=== PATIENT | male | born 1960 | race Caucasian/White ===

== ENCOUNTER → 2018-05-14 | Outpatient (CLI) | payer BC, OTHER ==
[~2018-05-14] VITALS: Ht 182.9 cm; Wt 73.5 kg
[~2018-05-14] MED LIST: ADVIL100 M2 PO; CREON DR 3,0001 EACH PO; KEFLEX500 MG PO; NEURONTIN 300300 M1 PO; NORCO 5-325 TA1 EACH PO; PROTONIX40 M1 PO; THERA-M1 EAC1 PO; TYLENOL EXTRA500 MG PO
[2018-05-14 07:01] VITALS: BP 126/81
[2018-05-14 07:11] LABS: HEMATOCRIT 37.8 % (42.0-52.0); HEMOGLOBIN 12.8 gm/dL (14.0-18.0); MCH 30.5 pg (26.0-34.0); MCHC 33.8 g/dL (28.0-37.0); MCV 90.2 fL (80.0-100.0); PLATELET COUNT 357 thou/uL (150-400); RBC 4.19 mil/uL (4.50-6.00); RDW 13.6 % (10.5-14.5); WBC 5.2 thou/uL (4.0-11.0)
[2018-05-14 07:19] LABS: CREATININE 0.6 mg/dL (0.7-1.3); POTASSIUM 3.8 mmol/L (3.5-5.1)
[2018-05-14 07:23] LABS: APTT 27.4 Seconds (24.5-32.8)
[2018-05-14 07:25] LABS: ALBUMIN 3.5 g/dL (3.4-5.0); TOTAL BILIRUBIN 0.7 mg/dL (<0.1-1.0); TOTAL PROTEIN 7.3 g/dL (6.4-8.2)
[2018-05-14 08:48] LABS: ABSOLUTE NEUTROPHILS 3.1 thou/uL (1.4-8.2); PLATELET ESTIMATE NORMAL
--- NOTE | 2018-05-17 08:52 | P ---
Formerly [facility] [place] [address] PROCEDURE REPORT Name: MALKA BAIRD [id number] Admission: 05/14/18 Attend Phys: Kamlesh Gutierres MD Discharge: Date of : 60 Report #: [id number] THIS REPORT FOR: //name// CC: Kamlesh Palencia DATE OF SERVICE: 05/14/2018 PREOPERATIVE DIAGNOSIS: Adenosine sensitive supraventricular tachycardia. POSTOPERATIVE DIAGNOSIS: Typical atrioventricular magi reentrant tachycardia. ANESTHESIA: The patient underwent MAC anesthesia with no anesthesia related complications. DESCRIPTION OF PROCEDURE: The patient underwent informed consent. We discussed the details of the procedure including the risks, which include but not limited to bleeding, vascular damage, cardiac perforation as well as stroke or [place]. Risks also include damage to the [place]on conduction system requiring permanent pacemaker. He understood these risks and is willing to proceed. The patient was brought to the EP laboratory in a fasting and sedated state, prepped and draped in a sterile fashion. I obtained access to the bilateral femoral veins and placing a short sheath using the modified Seldinger technique. In the right femoral vein, I placed an 8 and 6-Estonian short sheath. In the left femoral vein, I placed a 6 and 7-Estonian short sheath. Next, under fluoroscopy, I placed a decapolar catheter easily in the coronary sinus. Of note, his coronary sinus had a very vertical takeoff. I then placed 3 quadripolar catheters at the HRA, His, and RV positions. Next, a basic EP study was performed. At baseline, the patient was in sinus rhythm with a sinus cycle length of 630 milliseconds, WA interval 155 milliseconds, QRS duration of 140 milliseconds with a right bundle branch block, which is old, QT interval 380 milliseconds, AH interval 90 and HV interval 48 milliseconds. Next, atrial burst pacing was performed and the patient would go into a short run of what appeared to be an SVT with a high to low atrial activation. This would last for about 5-10 beats and was easily reproducible. AV block was noted at 330 milliseconds. A single atrial extrastimuli would also induce the short runs of his atrial tachycardia. Next, ventricular pacing was performed and VA block was noted at 300 milliseconds. Ventricular ERP was noted at 240 milliseconds at a [address] cycle length with conduction that was both midline and decremental. Next, I decided to initiate isoproterenol at 2 mcg per minute and AV block was noted at 280 milliseconds. Again, he would have the short runs of what appeared to be an atrial tachycardia that had a high to low atrial activation and therefore, I thought that perhaps we had a kimberly terminalis focus for an atrial tachycardia. As the patient was on isoproterenol, I decided to place a PentaRay into the right atrium and I created a detailed 3D geometry [facility] [address] [place] [address] PROCEDURE REPORT Name: MALKA BAIRD Room #: REG CL Kamaljit#: [id number] Admission: 05/14/18 Attend Phys: Kamlesh Gutierres MD Discharge: Date of : 60 Report #: [id number] of the right atrium. The patient then went into a rapid SVT that was 280 milliseconds and I started mapping this tachycardia and this showed that the tachycardia was arising close to the AV node. 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 This tachycardia had a tachycardia cycle length of 280 milliseconds, the septal VA time of 35 milliseconds. I attempted several times to entrain this, but this activation was classic for an AVNRT. Therefore, I removed the PentaRay catheter and then placed HRA catheter back and we tried to induce the AVNRT, which we were able to do several times. I could not entrain it, but we decided to proceed with ablation. 3D MAPPING AND ABLATION: I created a detailed 3D geometry of the area of the slow pathway and His bundle region using a 4 mm Biosense Carmona ablation catheter via SR0 sheath. Next, I performed ablation at 50 ernandez and 55 degrees. His very vertical coronary sinus ostium made finding a slow pathway region somewhat challenging. I performed a total of 8 ablation lesions with ablation lesion #6, we had nice slow junctionals for a period of 20-30 seconds. I performed 2 additional ablation lesions at this region with no further junctionals. As such, I decided to perform post-ablation testing. Post-ablation, the patient was in sinus rhythm. I initiated isoproterenol at 2 mcg per minute and performed aggressive atrial burst pacing. AV block was noted at 270 milliseconds on isoproterenol 2 mcg per minute. I performed atrial and ventricular pacing maneuvers from both the right and left atrium and I could not induce SVT. There were no single AV magi echoes. We were also not seeing any of the short bursts of the atrial tachycardia that we were seeing initially. Isoproterenol was turned down to 1. We continued testing and then eventually turned isoproterenol off completely. Post-ablation, the patient was in sinus rhythm with sinus cycle length of 585 milliseconds, WA interval 160 milliseconds, QRS duration 140 milliseconds with his preexisting right bundle branch block. QT interval 370 milliseconds, AH interval 95 milliseconds, and HV interval of 49 milliseconds. As such, all catheters and sheaths were pulled. Hemostasis was obtained and the patient awoke neurologically and hemodynamically intact. No complications. No significant bleed. CONCLUSIONS: 1. Successful ablation of typical AV magi reentry tachycardia. 2. Normal SA magi function. 3. Normal AV magi function. 4. Normal His-Purkinje function. 5. No other inducible arrhythmias on or off isoproterenol. <ELECTRONICALLY SIGNED> By: Kamlesh Gutierres MD 05/17/18 [id number] Kamlesh Gutierres MD /nt
== END | disposition home or self-care (01) ==
LOC: CATH 06:35
PROVIDERS: Internal Medicine Cardiovascular Disease
DX: I47.1 Supraventricular tachycardia (principal); J44.9 Chronic obstructive pulmonary disease, unspecified; K21.9 Gastro-esophageal reflux disease without esophagitis; Z87.891 Personal history of nicotine dependence; Z98.890 Other specified postprocedural states; Z85.028 Personal history of other malignant neoplasm of stomach; Z79.899 Other long term (current) drug therapy; Z79.01 Long term (current) use of anticoagulants
CPT/HCPCS: 70005